=== PATIENT | female | born 1990 | race Caucasian/White ===

== ENCOUNTER 2019-05-22 16:00 | Emergency (ER) | payer OTHER ==
--- NOTE | 2019-05-22 16:13 | ER Document Report ---
ED Medical Screen (RME) - General Chief Complaint: Vertigo Stated Complaint: VERTIGO Time Seen by Provider: 05/22/19 16:09 Mode of Arrival: Wheelchair Information source: Patient Notes: 28-year-old who presented to ED for complaint of left imbalance and dizziness for 1-1/2 to 2 weeks. She states she thought she might have a ear infection but now it is changed her sense of balance. She states she also has a pain in her lower back she states she has a history of chronic low back pain but is been worse for the last 3 weeks. She states she has been told in the past that she had scoliosis and she just started a new job and she does not know if that is why her back is hurting worse. She states she was smoking a pack a day until up for 5 months ago when she quit denies any alcohol use denies use of street drugs. Last menstrual period 05/07/2019. I have greeted and performed a rapid initial assessment of this patient. A comprehensive ED assessment and evaluation of the patient, analysis of test results and completion of medical decision making process will be conducted by an additional ED providers. Physical Exam - Vital signs Vitals: Temp Pulse Resp BP Pulse Ox 97.8 F 83 18 147/85 H 98 05/22/19 16:05 05/22/19 16:05 05/22/19 16:05 05/22/19 16:05 05/22/19 16:05 Course - Vital Signs Vital signs: Temp Pulse Resp BP Pulse Ox 97.8 F 83 18 147/85 H 98 05/22/19 16:05 05/22/19 16:05 05/22/19 16:05 05/22/19 16:05 05/22/19 16:05
[2019-05-22] MEDS ORDERED: ACETAMINOPHEN 325 MG TABLET PO ONE (16:14)
[2019-05-22] MEDS ORDERED: ONDANSETRON 4 MG TAB.RAPDIS PO ONE (16:15)
[2019-05-22 17:02] LABS: ABSOLUTE EOSINOPHILS # (AUTO) 0.1 10^3/uL (0.0-0.6); ABSOLUTE LYMPHOCYTES (AUTO) 1.9 10^3/uL (0.5-4.7); ABSOLUTE MONOCYTES (AUTO) 0.4 10^3/uL (0.1-1.4); ABSOLUTE NEUT (AUTO) 5.5 10^3/uL (1.7-8.2); BASOPHILS % (AUTO) 0.5 % (0-2); EOSINOPHILS % (AUTO) 0.7 % (0-6); HEMATOCRIT 38.9 % (36.0-47.0); HEMOGLOBIN 13.3 g/dL (12.0-15.5); MEAN CORPUSCULAR HEMOGLOBIN 29.7 pg (27.0-33.4); MEAN CORPUSCULAR HGB CONC 34.1 g/dL (32.0-36.0); MEAN CORPUSCULAR VOLUME 87 fl (80-97); MONOCYTES % (AUTO) 5.4 % (3-13); PLATELET COUNT 166 10^3/uL (150-450); RED BLOOD COUNT 4.46 10^6/uL (3.72-5.28); SEGMENTED NEUTROPHILS % (AUTO) 69.4 % (42-78); TOTAL CELLS COUNTED % (AUTO) 100 %; WHITE BLOOD COUNT 7.9 10^3/uL (4.0-10.5)
[2019-05-22 17:12] LABS: ALBUMIN 4.1 g/dL (3.5-5.0); ALKALINE PHOSPHATASE 59 U/L (38-126); ANION GAP 11 (5-19); ASPARTATE AMINO TRANSFERASE 32 U/L (14-36); BILIRUBIN,DIRECT 0.1 mg/dL (0.0-0.4); BILIRUBIN,TOTAL 0.3 mg/dL (0.2-1.3); BLOOD UREA NITROGEN 15 mg/dL (7-20); CALCIUM 9.4 mg/dL (8.4-10.2); CARBON DIOXIDE 22 mmol/L (22-30); CHLORIDE 106 mmol/L (98-107); GLUCOSE 120 mg/dL (75-110); TOTAL PROTEIN 7.3 g/dL (6.3-8.2)
[2019-05-22 18:00] LABS: APPEARANCE,URINE SLIGHTLY-CLOUDY; BILIRUBIN,URINE NEGATIVE (NEGATIVE); COLOR,URINE YELLOW; GLUCOSE, URINE NEGATIVE (NEGATIVE); KETONES,URINE NEGATIVE (NEGATIVE); LEUKOCYTE ESTERASE,URINE NEGATIVE (NEGATIVE); NITRITE,URINE NEGATIVE (NEGATIVE); PROTEIN,URINE NEGATIVE (NEGATIVE); URINE SPECIFIC GRAVITY 1.027; UROBILINOGEN,URINE NEGATIVE mg/dL (<2.0)
[2019-05-22] MEDS ORDERED: MECLIZINE HCL 25 MG TABLET PO ONE (18:09)
[2019-05-22 18:16] VITALS: BP 119/69
--- NOTE | 2019-05-22 18:26 | ER Document Report ---
HPI - HPI Time Seen by Provider: 05/22/19 16:09 Pain Level: 3 Notes: Patient is an otherwise healthy 28-year-old female presented to the emergency department with chief complaint of dizziness. Patient reports she has felt dizzy for approximately the last 1 to 2 weeks. She reports initially that she thought maybe she had an ear infection however her symptoms worsen. She denies any recent nausea, vomiting, diarrhea or fevers. - REPRODUCTIVE LMP: 05/07/2019 Reproductive: DENIES: : Past Medical History - General Information source: Patient - Social History Smoking Status: Former Smoker Chew tobacco use (# tins/day): No Frequency of alcohol use: None Drug Abuse: Marijuana Family History: Reviewed & Not Pertinent Patient has suicidal ideation: No Patient has homicidal ideation: No - Medical History Medical History: Negative Surgical Hx: Negative - Immunizations Immunizations up to date: Yes Vertical Provider Document - CONSTITUTIONAL Notes: PHYSICAL EXAMINATION: GENERAL: Well-appearing, well-nourished and in no acute distress. HEAD: Atraumatic, normocephalic. EYES: Pupils equal round and reactive to light, extraocular movements intact, conjunctiva are normal. ENT: Nares patent, oropharynx clear without exudates. Moist mucous membranes. Bilateral TMs unremarkable. NECK: Normal range of motion, supple without lymphadenopathy LUNGS: Breath sounds clear to auscultation bilaterally and equal. No wheezes rales or rhonchi. HEART: Regular rate and rhythm without murmurs ABDOMEN: Soft, nontender, nondistended abdomen. No guarding, no rebound. No masses appreciated. Female : deferred Musculoskeletal: Normal range of motion, no pitting or edema. No cyanosis. NEUROLOGICAL: Cranial nerves grossly intact. Normal speech, normal gait. Norm al sensory, motor exams PSYCH: Normal mood, normal affect. SKIN: Warm, Dry, normal turgor, no rashes or lesions noted. - INFECTION CONTROL TRAVEL OUTSIDE OF THE [place] IN LAST 30 DAYS: No Course - Re-evaluation Re-evalutation: Laboratory 05/22/19 05/22/19 05/22/19 16:44 16:44 16:44 WBC 7.9 RBC 4.46 Hgb 13.3 Hct 38.9 MCV 87 MCH 29.7 MCHC 34.1 RDW 14.0 Plt Count 166 Lymph % (Auto) 24.0 [place] % (Auto) 5.4 Eos % (Auto) 0.7 Baso % (Auto) 0.5 Absolute Neuts (auto) 5.5 Absolute Lymphs (auto) 1.9 Absolute Monos (auto) 0.4 Absolute Eos (auto) 0.1 Absolute Basos (auto) 0.0 Seg Neutrophils % 69.4 Sodium 138.8 Potassium 4.0 Chloride 106 Carbon Dioxide 22 Anion Gap 11 BUN 15 Creatinine 0.53 Est GFR ( Amer) > 60 Est GFR (MDRD) Non-Af > 60 Glucose 120 H Calcium 9.4 Total Bilirubin 0.3 Direct Bilirubin 0.1 Neonat Total Bilirubin Not Reportable Neonat Direct Bilirubin Not Reportable Neonat Indirect Bili Not Reportable AST 32 ALT 39 Alkaline Phosphatase 59 Total Protein 7.3 Albumin 4.1 Serum HCG, Qual NEGATIVE Urine Color Urine Appearance Urine pH Ur Specific [place] Urine Protein Urine Glucose (UA) Urine Ketones Urine Blood Urine Nitrite Urine Bilirubin Urine Urobilinogen Ur Leukocyte Esterase Urine WBC (Auto) Urine RBC (Auto) Squamous Epi Cells Auto Urine Mucus (Auto) Urine Ascorbic Acid 05/22/19 17:42 WBC RBC Hgb Hct MCV MCH MCHC RDW Plt Count Lymph % (Auto) [place] % (Auto) Eos % (Auto) Baso % (Auto) Absolute Neuts (auto) Absolute Lymphs (auto) Absolute Monos (auto) Absolute Eos (auto) Absolute Basos (auto) Seg Neutrophils % Sodium Potassium Chloride Carbon Dioxide Anion Gap BUN Creatinine Est GFR ( Amer) Est GFR (MDRD) Non-Af Glucose Calcium Total Bilirubin Direct Bilirubin Neonat Total Bilirubin Neonat Direct Bilirubin Neonat Indirect Bili AST ALT Alkaline Phosphatase Total Protein Albumin Serum HCG, Qual Urine Color YELLOW Urine Appearance SLIGHTLY-CLOUDY Urine pH 5.0 Ur Specific [place] 1.027 Urine Protein NEGATIVE Urine Glucose (UA) NEGATIVE Urine Ketones NEGATIVE Urine Blood MODERATE H Urine Nitrite NEGATIVE Urine Bilirubin NEGATIVE Urine Urobilinogen NEGATIVE Ur Leukocyte Esterase NEGATIVE Urine WBC (Auto) 3 Urine RBC (Auto) 7 Squamous Epi Cells Auto 3 Urine Mucus (Auto) MANY Urine Ascorbic Acid NEGATIVE Labs as recorded above are unremarkable. Patient's physical exam as well as history of present illness are most consistent with vertigo. Patient's vital signs are within normal limits. Patient was given a dose of meclizine here in the emergency department. She will be given a prescription for same, she will be discharged home in stable condition. ED return precautions were discussed with patient has been, they both verbalized understanding and agreement with same. - Vital Signs Vital signs: Temp Pulse Resp BP Pulse Ox 97.8 F 83 21 H 119/69 97 05/22/19 16:05 05/22/19 16:05 05/22/19 18:01 05/22/19 18:01 05/22/19 18:01 - Laboratory Result Diagrams: 05/22/19 16:44 05/22/19 16:44 Laboratory results interpreted by me: 05/22/19 05/22/19 16:44 17:42 Glucose 120 H Urine Blood MODERATE H Discharge - Discharge Clinical Impression: Vertigo, Dizziness Condition: Stable Disposition: HOME, SELF-CARE Additional Instructions: You were seen in the emergency department today for an episode of dizziness. Your physical examination did not reveal any source of infection such as an ear infection. All of your blood work today was unremarkable. Please try taking the medication as prescribed as this should help with your dizziness. If your symptoms do not improve please contact a provider at [facility]. Return to the emergency department if you develop any worsening symptoms or you pass out. Prescriptions: Meclizine HCl [Antivert 25 mg Tablet] 25 mg PO TID PRN #21 tablet PRN Reason: Ondansetron [Zofran Odt 4 mg Tablet] 1 - 2 tab PO Q4H PRN #15 tab.rapdis PRN Reason: For Nausea/Vomiting Forms: Return to Work Referrals: ASH CLINE DO [ASSOCIATE] - Follow up as needed
== END 2019-05-22 18:38 | disposition home or self-care (01) ==
LOC: ER 16:00
DX: R42 Dizziness and giddiness (principal)
CPT/HCPCS: 36415; 84703; 85025; 80053; 81001; S0119

== ENCOUNTER 2019-07-01 15:36 | Emergency (ER) | payer MEDICAID, OTHER ==
[2019-07-01 15:43] VITALS: BP 109/86
[2019-07-01] MEDS ORDERED: CYCLOBENZAPRINE HCL 10 MG TABLET PO ONE (16:00)
[2019-07-01] MEDS ORDERED: HYDROCODONE/ACETAMINOPHEN 5-325 MG TABLET PO ONE (16:00)
--- NOTE | 2019-07-01 16:00 | ER Document Report ---
ED Medical Screen (RME) - General Chief Complaint: Back Pain Stated Complaint: BACK PAIN Time Seen by Provider: 07/01/19 15:51 Primary Care Provider: [facility] [Provider Group] - Follow up in 1 week SRINIVAS DENNY MD [ACTIVE STAFF] - Follow up in 1 week (for PCP follow up) TRAVEL OUTSIDE OF THE U[place] IN LAST 30 DAYS: No - HPI Notes: 07/01/19 29-year-old female to the emergency department with complaints of low left-sided back that started at work yesterday. She states that she has a history of scoliosis and has chronic back pain but she predominantly can deal with it with [id number] medicines and gentle stretching's. She states yesterday while she was working at [employer] she was moving the [employer] machine when she felt a acute pain in her back. She states that since then she has been having a lot of pain. States that it increases with movement. She denies any bladder or bowel incontinence, radiculopathy, saddle paresthesias, fever, IV drug abuse. She states that she is taking [id number] medicines but not have helped. She denies any other complaints or any other injuries. - Related Data Allergies/Adverse Reactions: No Known Allergies Allergy (Unverified 05/22/19 16:11) Past Medical History - General Information source: Patient - Social History Cigarette use (# per day): Yes Frequency of alcohol use: Rare Drug Abuse: None Family history: Reviewed & Not Pertinent - Immunizations Immunizations up to date: Yes Review of Systems - Review of Systems Constitutional: denies: Chills, Fever EENT: No symptoms reported. denies: Double vision, Ear pain Cardiovascular: denies: Palpitations, Heart racing, Orthopnea, Dyspnea, Syncope, Dizziness, Lightheaded Respiratory: denies: Cough, Short of breath Gastrointestinal: denies: Abdominal pain, Diarrhea, Nausea, Vomiting - Monitoring ordered patient should be getting a bed for him because his oxygen level is low there would continue to his team asked the nursing staff they could recheck his vitals for me really quickly and if he still has oxygen and will thank you Genitourinary: denies: Frequency, Flank pain, Hematuria, Incontinence Female Genitourinary: No symptoms reported Musculoskeletal: Back pain Skin: No symptoms reported Hematologic/Lymphatic: No symptoms reported Neurological/Psychological: No symptoms reported -: Yes All other systems reviewed and negative Physical Exam - Vital signs Vitals: Temp Pulse Resp BP Pulse Ox 97.9 F 75 18 109/86 H 99 07/01/19 15:43 07/01/19 15:43 07/01/19 15:43 07/01/19 15:43 07/01/19 15:43 Interpretation: Normal - General General appearance: Appears well, Alert - HEENT Head: Normocephalic, Atraumatic Eyes: Normal Pupils: PERRL - Respiratory Respiratory status: No respiratory distress Chest status: Nontender Breath sounds: Normal Chest palpation: Normal - Cardiovascular Rhythm: Regular Heart sounds: Normal auscultation Murmur: No - Abdominal Inspection: Normal Distension: No distension Bowel sounds: Normal Tenderness: Nontender Organomegaly: No organomegaly - Back Back: Tender - there is TTP over the left side of the lumbar paraspinals with noted muscle spasm. Negative SLR bilaterally. Non tender to palpation over the midline cevical, thoracic, and lumbar spine.. No: Deformity/step-off, CVA tenderness, Vertebra tenderness - Extremities General upper extremity: Normal inspection, Nontender, Normal color, Normal ROM, Normal temperature General lower extremity: Normal inspection, Nontender, Normal color, Normal ROM, Normal temperature, Normal weight bearing. No: Vivian's sign - Neurological Neuro grossly intact: Yes Cognition: Normal Orientation: AAOx4 Dk Coma Scale Eye Opening: Spontaneous [place] Coma Scale Verbal: Oriented Dk Coma Scale Motor: Obeys Commands Dk Coma Scale Total: 15 Speech: Normal Motor strength normal: LUE, RUE, LLE, RLE Sensory: Normal - Psychological Associated symptoms: Normal affect, Normal mood - Skin Skin Temperature: Warm Skin Moisture: Dry Skin Color: Normal Course - Re-evaluation Re-evalutation: 07/01/19 Impression: Left lower back strain with muscle spasm. Will send home with pain meds and muscle relaxant. Will encourage to follow up with PCP. Encouraged gentle stretching and to return if her symptoms worsen. Patient agrees with the plan. - Vital Signs Vital signs: Temp Pulse Resp BP Pulse Ox 97.9 F 75 18 109/86 H 99 07/01/19 15:43 07/01/19 15:43 07/01/19 15:43 07/01/19 15:43 07/01/19 15:43 Doctor's Discharge - Discharge Clinical Impression: Back spasm Left low back pain Qualifiers: Chronicity: acute Sciatica presence: without sciatica Qualified Code(s): M54.5 - Low back pain Condition: Stable Disposition: HOME, SELF-CARE Instructions: Low Back Pain ([facility]), Muscle Strain ([facility]), Warm Packs ([facility]) Additional Instructions: FOLLOW UP WITH PRIMARY CARE LISTED BELOW. RETURN IF WORSE. APPLY WARM COMPRESSES FOR 20 MINUTES AT A TIME. RETURN IF ANY LOSS OF BLADDER/BOWEL CONTROL, FEVERS, LEG WEAKNESS OR ANY OTHER CONCERNS. Prescriptions: Cyclobenzaprine HCl [Flexeril 10 mg Tablet] 10 mg PO TID #15 tablet Hydrocodone/Acetaminophen [[place] 5-325 mg Tablet] 1 tab PO Q6H #10 tablet Forms: Return to Work Referrals: SRINIVAS DENNY MD [ACTIVE STAFF] - Follow up in 1 week (for PCP follow up) [facility] [Provider Group] - Follow up in 1 week
== END 2019-07-01 16:15 | disposition home or self-care (01) ==
LOC: ER 15:36
DX: M62.830 Muscle spasm of back (principal); M54.5 Low back pain; G89.29 Other chronic pain; F17.210 Nicotine dependence, cigarettes, uncomplicated; X58.XXXA Exposure to other specified factors, initial encounter; Y92.511 Restaurant or cafe as the place of occurrence of the external cause; Y99.0 Civilian activity done for income or pay
CPT/HCPCS: 99283

== ENCOUNTER 2019-07-28 03:21 | Emergency (ER) | payer BC ==
[2019-07-28 03:32] VITALS: BP 134/66
[2019-07-28] MEDS ORDERED: KETOROLAC TROMETHAMINE 60 MG/2 ML SDV IM ONE (03:52)
[2019-07-28] MEDS ORDERED: ACETAMINOPHEN 325 MG TABLET PO ONE (03:52)
[2019-07-28] MEDS ORDERED: HYDROXYZINE HCL 10 MG TABLET PO ONE (03:52)
--- NOTE | 2019-07-28 05:03 | ER Document Report ---
ED General - General Chief Complaint: Anxiety Stated Complaint: HEART PALPITATIONS Time Seen by Provider: 07/28/19 03:37 Notes: Tiki Cruz is a old female with past medical history of scoliosis, anxiety and depression ending to the ED for panic attack. Patient states that she and her just recently moved to [place] at the end of March. She is was diagnosed with scoliosis after dealing with prolonged period of time of chronic back pain. Patient states that she did not have the scoliosis surgery. She has not establish care with a primary care doctor here yet. She states that she has been using intermittent Aleve, ibuprofen, Tylenol with minimal relief. She works at [employer] and usually has to take a dose of NSAIDs as soon as she gets home secondary to chronic back pain. This evening, her pain was so severe that she states she believes that she worked herself up into an anxiety attack. Patient states that the pain has become progressively bad over the past few months and on several occasions, it sounds shocks down her legs and she has had involuntary episodes of incontinence at work when coughing. She states that she is in multiple support groups for scoliosis and she has an upcoming appointment with a primary care doctor on 11 August. She states she was just getting off work, had not gotten a chance to take any NSAIDs or Tylenol yet when she became quite upset related to the ongoing chronic pain. She presents to the ED with palpitations and worsening back pain. Patient denies any difficulty ambulating, difficulty urinating or defecating, saddle paresthesias, fever or chills, chest pain or shortness of breath. She denies any nausea, abdominal pain, vomiting or diarrhea. TRAVEL OUTSIDE OF THE [place] IN LAST 30 DAYS: No - Related Data Allergies/Adverse Reactions: No Known Allergies Allergy (Unverified 05/22/19 16:11) Past Medical History - Social History Smoking Status: Never Smoker Family History: Reviewed & Not Pertinent Patient has suicidal ideation: No Patient has homicidal ideation: No - Immunizations Immunizations up to date: Yes Review of Systems - Review of Systems Constitutional: See HPI EENT: No symptoms reported Cardiovascular: No symptoms reported Respiratory: No symptoms reported Gastrointestinal: No symptoms reported Genitourinary: No symptoms reported Female Genitourinary: No symptoms reported Musculoskeletal: No symptoms reported Skin: No symptoms reported Hematologic/Lymphatic: No symptoms reported Neurological/Psychological: No symptoms reported Physical Exam - Vital signs Vitals: Temp Pulse Resp BP Pulse Ox 98.0 F 90 18 134/66 H 98 07/28/19 03:28 07/28/19 03:28 07/28/19 03:28 07/28/19 03:28 07/28/19 03:28 Course - Re-evaluation Re-evalutation: Patient is generally well-appearing and nontoxic. Initial vitals WNL. Differential diagnosis includes muscular strain, chronic back pain, scoliosis, anxiety. Patient is quite anxious regarding her chronic back pain and dates that she started having chronic back pain. However she has been unable to establish care despite living here for several months. Patient also only intermittently using ibuprofen and usually at the end of shift of work. Patient recommended to buy a support her back brace to help with the back pain. 07/28/19 04:59 She is back pain is somewhat improved. She also feels significantly improved in terms of her anxiety. Patient given return precautions and instructed to use Motrin 800 mg every 8 hours for pain control as well as Tylenol 650 as needed. Patient recommended to use a back brace or support brace while at work given that she is on her feet for 8 to 10 hours at a time. - Vital Signs Vital signs: Temp Pulse Resp BP Pulse Ox 98.0 F 90 18 134/66 H 98 07/28/19 04:29 07/28/19 03:28 07/28/19 04:29 07/28/19 03:28 07/28/19 04:29 Discharge - Discharge Clinical Impression: History of scoliosis, Anxiety Back pain Qualifiers: Back pain location: low back pain Chronicity: unspecified Back pain laterality: unspecified Sciatica presence: without sciatica Qualified Code(s): M54.5 - Low back pain Condition: Good Disposition: HOME, SELF-CARE Instructions: Anxiety ([facility]), Chronic Back Pain ([facility]), Stretching Exercises for the Back ([facility]) Additional Instructions: I would recommend that you start wearing a back brace or support brace to help support you. I would also recommend that you use ibuprofen 800 mg both before working shift as well at the end of your shift to help prevent the back pain from becoming excruciating. Is safe for you to use Tylenol in addition to ibuprofen simultaneously. Follow-up with your primary care doctor as needed. If you develop worsening pain, difficulty walking, or any other concerning symptoms, return to the ED for further evaluation.
== END 2019-07-28 05:13 | disposition home or self-care (01) ==
LOC: ER 03:21
DX: F41.9 Anxiety disorder, unspecified (principal); M54.5 Low back pain; G89.29 Other chronic pain; R32 Unspecified urinary incontinence; R00.2 Palpitations; Z87.39 Personal history of other diseases of the musculoskeletal system and connective tissue
CPT/HCPCS: 99283; 96372; J1885

== ENCOUNTER 2019-08-26 17:17 | Emergency (ER) | payer BC ==
[2019-08-26] MEDS ORDERED: KETOROLAC TROMETHAMINE INJ/PF 30 MG/1 ML SDV IM ONE (17:39)
[2019-08-26] MEDS ORDERED: DEXAMETHASONE SOD PHOS INJ 10 MG/1 ML VIAL IM ONE (17:39)
--- NOTE | 2019-08-26 17:43 | ER Document Report ---
ED Medical Screen (RME) - General Chief Complaint: Leg Pain Stated Complaint: FEET SWELLING, LEG PAIN Time Seen by Provider: 08/26/19 17:36 Mode of Arrival: Ambulatory Information source: Patient Notes: 29-year-old female presented to ED for complaint of increasing numbness and pain in her lower back down her both legs worse on the right. She states she was diagnosed with scoliosis in March 2019. She states that sometimes she is incontinent of urine and sometimes she gets the urge and urinates at the same time. Once or medications for this back pain. She states she found out she had scoliosis when she went in for low back pain in March. She states she does have a history of anxiety and depression. She is a former smoker but no longer smokes. She is alert oriented respirations regular nonlabored speaking in full sentences walks with even steady gait at this time. I have greeted and performed a rapid initial assessment of this patient. A comprehensive ED assessment and evaluation of the patient, analysis of test results and completion of medical decision making process will be conducted by an additional ED providers. TRAVEL OUTSIDE OF THE [place] IN LAST 30 DAYS: No - Related Data Allergies/Adverse Reactions: No Known Allergies Allergy (Verified 08/26/19 17:37) Past Medical History - Social History Family history: Reviewed & Not Pertinent - Immunizations Immunizations up to date: Yes Physical Exam - Vital signs Vitals: Temp Pulse Resp BP Pulse Ox 98.4 F 75 16 129/73 H 99 08/26/19 17:30 08/26/19 17:30 08/26/19 17:30 08/26/19 17:30 08/26/19 17:30 Course - Vital Signs Vital signs: Temp Pulse Resp BP Pulse Ox 98.4 F 75 16 129/73 H 99 08/26/19 17:30 08/26/19 17:30 08/26/19 17:30 08/26/19 17:30 08/26/19 17:30
--- NOTE | 2019-08-26 18:23 | RADIOLOGY REPORT (SQ) ---
EXAM DESCRIPTION: L SPINE WHOLE COMPLETED DATE/TIME: 08/26/2019 6:00 pm REASON FOR STUDY: pain both legs numbness right leg COMPARISON: None. NUMBER OF VIEWS: Five views including obliques. TECHNIQUE: AP, lateral, oblique, and sacral radiographic images acquired of the lumbar spine. LIMITATIONS: None. FINDINGS: MINERALIZATION: Normal. SEGMENTATION: Sacralized L5 with a very small L5-S1 disc space. ALIGNMENT: Normal. VERTEBRAE: Maintained height. No fracture or worrisome bone lesion. DISCS: Preserved height. No significant osteophytes or end plate irregularity. POSTERIOR ELEMENTS: Pedicles and facets are intact. No pars defect or posterior arch defects. HARDWARE: None in the spine. PARASPINAL SOFT TISSUES: Normal. PELVIS: Intact as visualized. No fractures or worrisome bone lesions. SI joints intact. OTHER: No other significant finding. 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 Otherwise unremarkable kannan dy TECHNICAL DOCUMENTATION: JOB ID: [id number] [employer]- All Rights Reserved Reading location - IP/workstation name: [email or web address]
--- NOTE | 2019-08-26 21:04 | ER Document Report ---
ED General - General Chief Complaint: Numbness Stated Complaint: FEET SWELLING, LEG PAIN Time Seen by Provider: 08/26/19 17:36 Mode of Arrival: Ambulatory Notes: 29-year-old woman presents to the emergency department with a complaint of back pain and numbness involving her lower legs. She has had a history of similar episodes in the past. Apparently has been working on her feet and note that her employer would not give her a break. She presently is taking Tylenol for pain. She has a history of scoliosis. She denies any loss of bowel or bladder continence. TRAVEL OUTSIDE OF THE [place] IN LAST 30 DAYS: No - Related Data Allergies/Adverse Reactions: No Known Allergies Allergy (Verified 08/26/19 17:37) Past Medical History - General Information source: Patient - Social History Smoking Status: Former Smoker Family History: Reviewed & Not Pertinent Patient has suicidal ideation: No Patient has homicidal ideation: No - Immunizations Immunizations up to date: Yes Review of Systems - Review of Systems Notes: Constitutional: Negative for fever. HENT: Negative for sore throat. Eyes: Negative for visual changes. Cardiovascular: Negative for chest pain. Respiratory: Negative for shortness of breath. Gastrointestinal: Negative for abdominal pain, vomiting or diarrhea. Genitourinary: Negative for dysuria. Musculoskeletal: + back pain. Skin: Negative for rash. Neurological: +numbness feet. 10 point ROS negative except as marked above and in HPI. Physical Exam - Vital signs Vitals: Temp Pulse Resp BP Pulse Ox 98.4 F 75 16 129/73 H 99 08/26/19 17:30 08/26/19 17:30 08/26/19 17:30 08/26/19 17:30 08/26/19 17:30 - Notes Notes: PHYSICAL EXAMINATION: Physical Exam: General: Well-nourished well-developed overweight female. in no acute distress HEENT: NC/AT, pupils equal round and reactive to light, MM moist,nares clear, Neck: supple, no adenopathy, no masses. Lungs: clear, no wheezing, no rales no rhonchi CVS: Regular rate and rhythm no murmur gallop or rub Abdomen: Soft active nontender, no masses, no hepatosplenomegaly Ext: No edema clubbing or cyanosis. Neuro: Alert and responsive, moving all 4 extremities on command, cranial nerves intact. Skin: Intact no open lesions, no rash PSYCH: Normal mood, normal affect. Course - Re-evaluation Re-evalutation: 08/26/19 20:58 29-year-old woman presents to the emergency department with a history of back pain. She has a history of scoliosis and has had exacerbations of pain in the past. She is been using Tylenol for pain however the pain is worsened with radiation of pain into the buttocks bilaterally. She denies weakness in her legs however has had episodic numbness in her her left foot. - Vital Signs Vital signs: Temp Pulse Resp BP Pulse Ox 98.4 F 75 16 129/73 H 99 08/26/19 17:30 08/26/19 17:30 08/26/19 17:30 08/26/19 17:30 08/26/19 17:30 Discharge - Discharge Clinical Impression: Low back pain Qualifiers: Chronicity: unspecified Back pain laterality: unspecified Sciatica presence: unspecified whether sciatica present Qualified Code(s): M54.5 - Low back pain Scoliosis Qualifiers: Scoliosis type: unspecified scoliosis Spinal region: unspecified Qualified Code(s): M41.9 - Scoliosis, unspecified Condition: Good Disposition: HOME, SELF-CARE Instructions: Low Back Pain ([facility]) Additional Instructions: You have been seen in the Emergency Department (ED) today for back pain. Your workup and exam have not shown any acute abnormalities and you are likely suffering from muscle strain or possible problems with your discs, but there is no treatment that will fix your symptoms at this time. Please take the naproxen that has been prescribed as directed. You should also purchase a local lidocaine cream such as "aspercreme with lidocaine" and use per bottle instructions to the affected area. Apply heat to the area as often as you are able. Continue to keep active and avoid prolonged periods of bed rest. Please take the medications as prescribed, prednisone, Naprosyn, baclofen. Please follow up with your doctor as soon as possible regarding today's ED visit and your back pain. Referrals: [facility] [Provider Group] - Follow up as needed
[2019-08-26 21:15] VITALS: BP 120/69
== END 2019-08-26 21:18 | disposition home or self-care (01) ==
LOC: ER 17:17
DX: M41.9 Scoliosis, unspecified (principal); M54.5 Low back pain; R20.0 Anesthesia of skin; Z87.891 Personal history of nicotine dependence
CPT/HCPCS: 99283; 96372; 72110; J1885; J1100